=== PATIENT | female | born 1980 | race Caucasian/White ===

== ENCOUNTER 2019-08-03 06:54 | Emergency (ER) | payer MEDICAID ==
[~2019-08-03] VITALS: Ht 165.1 cm; Wt 80.0 kg
[2019-08-03] MEDS ORDERED: LORazepam 2 mg/ml vial IV ONE (07:30)
[2019-08-03] MEDS ORDERED: normal saline 1000ml 1,000 ML IV ONE (07:30)
--- NOTE | 2019-08-03 09:44 | NUR ---
breaking primary RN, pt is laying on her right side awake aware, stable, able to make needs known
[2019-08-03 09:45] LABS: URINE HCG NEGATIVE (NEG)
[2019-08-03 09:46] LABS: CLARITY,URINE SLIGHTLY CLOUDY (Clear); COLOR,URINE YELLOW (Yellow); GLUCOSE, URINE NEGATIVE (Neg); KETONES,URINE >=80 mg/dl (Neg); LEUKOCYTE ESTERASE ,URINE NEGATIVE (Neg); NITRITES, URINE NEGATIVE (Neg); OCCULT BLOOD,URINE SMALL (Neg); PROTEIN,URINE TRACE mg/dl (Neg); UROBILINOGEN,URINE 0.2 E.U/dL (0.2-1.0)
[2019-08-03 09:48] LABS: UA COLLECTION TYPE CLN CATCH MIDSTREAM
[2019-08-03 09:58] LABS: URINE AMPHETAMINE SCREEN POSITIVE (Neg); URINE BARBITUATE SCREEN NEGATIVE (Neg); URINE BENZODIAZEPINES SCREEN NEGATIVE (Neg); URINE CANNABINOID SCREEN NEGATIVE (Neg); URINE COCAINE SCREEN NEGATIVE (Neg); URINE METHADONE SCREEN NEGATIVE (Neg); URINE OPIATE SCREEN NEGATIVE (Neg); URINE PHENCYCLIDINE SCREEN NEGATIVE (Neg)
[2019-08-03 10:11] LABS: MUCUS STRANDS FEW /LPF (Neg); SQUAMOUS EPITHELIAL CELL,UR FEW /LPF (FEW)
[2019-08-03 10:12] LABS: BACTERIA,URINE 1+ /HPF (Neg); RBC,URINE 0-2 /HPF (0-2)
[2019-08-03 10:35] VITALS: BP 154/103
== END 2019-08-03 10:44 | disposition home or self-care (01) ==
LOC: ER 06:55
DX: Z01.419 Encounter for gynecological examination (general) (routine) without abnormal findings (principal)
CPT/HCPCS: 80305; 81001; 81025; 87088; 96374; 99284; J2060; J7030